=== PATIENT | female | born 1990 | race Caucasian/White ===

== ENCOUNTER 2023-03-05 05:25 | Emergency (ER) | payer OTHER ==
[~2023-03-05] VITALS: Ht 177.8 cm; Wt 72.6 kg
--- NOTE | 2023-03-05 05:32 | NUR ---
[id number] AND [employer] C/O BEING PEPPER SPRAY WHILE WALKING ON STREET. PT A/OX3. TOLERATING R/A WELL WITH NO RESP DISTRESS.
[2023-03-05] MEDS ORDERED: LORAZEPAM 1 MG TABLET PO ONE (06:30)
[2023-03-05] MEDS ORDERED: TETRAcaine 5 ML BOTTLE EACHEYE ONE (06:30)
[2023-03-05] MEDS ORDERED: LORAZEPAM 1 MG TABLET ONE (06:49)
--- NOTE | 2023-03-05 06:54 | NUR ---
PT FLUSHED EYES WITH WATER
--- NOTE | 2023-03-05 07:09 | NUR ---
Patient discharged to home in stable condition. Written and verbal after care instructions given. Patient verbalizes understanding of instruction.
[2023-03-05 07:10] VITALS: BP 121/77
== END 2023-03-05 07:11 | disposition home or self-care (01) ==
LOC: ER 05:29
DX: T65.891A Toxic effect of other specified substances, accidental (unintentional), initial encounter (principal); H10.213 Acute toxic conjunctivitis, bilateral; Z60.2 Problems related to living alone; Y92.89 Other specified places as the place of occurrence of the external cause

== ENCOUNTER 2023-03-05 08:08 | Emergency (ER) | payer OTHER ==
[~2023-03-05] VITALS: Ht 170.2 cm; Wt 62.6 kg
[2023-03-05 08:14] VITALS: BP 132/68; TEMP 98.2
--- NOTE | 2023-03-05 08:14 | NUR ---
PT [id number] FOR LEFT ARMPIT PAIN. NO LACERATION OR BRUISING NOTED. PT DENIES ANY TRAUMA TO AREA. MD AT BEDSIDE FOR EVAL
--- NOTE | 2023-03-05 08:14 | NUR ---
PT REQUESTED TO USE THE RESTROOM, BREATHING EVEN AND UNLABORED, AMBULATORY WITH STEADY GAIT. PT IS NOT IN ACUTE DISTRESS.
--- NOTE | 2023-03-05 09:04 | NUR ---
PERSONAL NEEDS PROVIDED.
--- NOTE | 2023-03-05 09:15 | NUR ---
Patient discharged to home in stable condition. Written and verbal after care instructions given. Patient verbalizes understanding of instruction.
== END 2023-03-05 09:15 | disposition home or self-care (01) ==
LOC: ER 08:31
DX: M79.602 Pain in left arm (principal); M79.601 Pain in right arm; F19.10 Other psychoactive substance abuse, uncomplicated; Z60.2 Problems related to living alone